=== PATIENT | female | born 1950 | race Caucasian/White ===

== ENCOUNTER 2020-04-06 10:31 | Outpatient (CLI) | payer MEDICARE, OTHER, SELFPAY ==
[2020-04-06 11:06] LABS: Add Urine Microscopic? YES; Appearance Urine Cloudy (Clear); Bacteria Urine Trace /hpf; Bilirubin Urine Negative (Negative); Blood Urine Negative (Negative); Color Urine Amber (Yellow); Glucose Urine UA Negative (Negative); Ketones Urine Negative (Negative); Leukocyte Esterase Ur 3+ LEU/UL (NEGATIVE); Mucus Urine Few /lpf; Nitrate Urine Negative (Negative); Protein Urine Negative (Negative); Specific Grav Ur 1.019 (1.001-1.035); Squamous Epithelial Cell Urine Occasional /hpf (Few); Urobilinogen Urine Negative mg/dL (<2.0); WBC Urine >75 /hpf (0-3)
[2020-04-06 11:11] LABS: Alanine Aminotransferase 94 U/L (4-35); Albumin Level 4.3 g/dL (3.5-5.1); Alkaline Phosphatase 68 U/L (38-126); Anion Gap 9 mmol/L (8-16); Aspartate Amino Transferase 81 U/L (14-36); Bilirubin,Total 0.9 mg/dL (0.2-1.3); Blood Urea Nitrogen 13 mg/dL (7-17); Calcium 9.6 mg/dL (8.4-10.2); Carbon Dioxide 26 mmol/L (22-30); Chloride 103 mmol/L (98-107); Cholesterol 192 mg/dL (0-200); Estimated Glomerular Filt Rate > 60; Glucose 128 mg/dL (65-105); HDL Direct 43 mg/dL; Potassium 4.2 mmol/L (3.4-5.0); Sodium 138 mmol/L (137-145); Triglycerides 159 mg/dL (<150)
[2020-04-06 11:22] LABS: LDL Cholesterol Direct 114 mg/dL
[2020-04-06 13:17] LABS: Hemoglobin A1C 6.2 % (<5.7)
== END 2020-04-06 10:32 | disposition home or self-care (01) ==
PROVIDERS: PCP Family Medicine; Visit Provider Physician Assistant
DX: E11.29 Type 2 diabetes mellitus with other diabetic kidney complication (principal); R80.9 Proteinuria, unspecified; I10 Essential (primary) hypertension; E78.2 Mixed hyperlipidemia
CPT/HCPCS: 36415; 80053; 80061; 81001; 83036

== ENCOUNTER 2020-06-11 11:25 | Outpatient (CLI) | payer MEDICARE, OTHER, SELFPAY ==
[2020-06-11 11:48] LABS: Add Urine Microscopic? YES; Appearance Urine Clear (Clear); Bilirubin Urine Negative (Negative); Blood Urine 1+ (Negative); Color Urine Yellow (Yellow); Glucose Urine UA Negative (Negative); Ketones Urine Negative (Negative); Leukocyte Esterase Ur 3+ LEU/UL (NEGATIVE); Nitrate Urine Negative (Negative); Protein Urine Negative (Negative); RBC Urine 0-2 /hpf (0-2); Urobilinogen Urine Negative mg/dL (<2.0); WBC Urine 51-75 /hpf (0-3)
[2020-06-11 12:13] LABS: Specific Grav Ur 1.004 (1.001-1.035)
== END 2020-06-11 11:26 | disposition home or self-care (01) ==
LOC: ANHLAB 11:27
PROVIDERS: PCP Family Medicine; Visit Provider Nurse Practitioner Family
DX: Z00.00 Encounter for general adult medical examination without abnormal findings (principal); N39.0 Urinary tract infection, site not specified; R30.0 Dysuria
CPT/HCPCS: 81001; 87086; 87088

== ENCOUNTER 2020-08-18 10:46 | Outpatient (CLI) | payer MEDICARE, OTHER, SELFPAY ==
[2020-08-18 11:25] LABS: Add Urine Microscopic? YES; Appearance Urine Clear (Clear); Bilirubin Urine Negative (Negative); Blood Urine Negative (Negative); Color Urine Amber (Yellow); Glucose Urine UA Negative (Negative); Ketones Urine Negative (Negative); Leukocyte Esterase Ur 1+ LEU/UL (NEGATIVE); Mucus Urine Rare /lpf; Nitrate Urine Positive (Negative); Protein Urine Negative (Negative); RBC Urine 0-2 /hpf (0-2); Squamous Epithelial Cell Urine Rare /hpf (Few)
== END 2020-08-18 10:47 | disposition home or self-care (01) ==
PROVIDERS: PCP Family Medicine; Visit Provider Nurse Practitioner Family
DX: N39.0 Urinary tract infection, site not specified (principal)
CPT/HCPCS: 81001; 87086; 87088

== ENCOUNTER 2020-09-02 10:18 | Outpatient (CLI) | payer MEDICARE, OTHER, SELFPAY ==
[2020-09-02 10:38] LABS: Basophils Absolute Auto 0.1 K/mm3 (0.0-0.1); Basophils Percent Auto 0.9 % (0.2-1.2); Eosinophils Absolute Auto 0.3 K/mm3 (0-0.3); Eosinophils Percent Auto 4.6 % (0-4.4); Hemoglobin 15.4 g/dL (12.0-15.0); Immature Granulocyte Absolute 0.01 K/mm3 (0.00-0.031); Immature Granulocyte Percent A 0.2 % (0-0.5); Lymphocytes Absolute Auto 1.76 K/mm3 (0.9-3.2); Lymphocytes Percent Auto 31.2 % (18.3-44.2); Mean Corpuscular HGB Conc 33.5 g/dl (32-36); Mean Corpuscular Volume 92.7 fl (80-100); Monocytes Absolute Auto 0.5 K/mm3 (0.1-0.6); Neutrophils Absolute Auto 3.1 K/mm3 (1.3-6.7); Neutrophils Percent Auto 54.1 % (45.5-73.1); Platelet Count Result 167 k/mm3 (150-375); Red Blood Count 4.96 M/mm3 (4.2-5.4); Red Cell Distribution Width 12.4 % (11.5-14.5); White Blood Count 5.7 K/mm3 (4.5-10.0)
[2020-09-02 10:50] LABS: Alanine Aminotransferase 35 U/L (4-35); Albumin Level 4.1 g/dL (3.5-5.1); Alkaline Phosphatase 41 U/L (38-126); Anion Gap 3 mmol/L (8-16); Aspartate Amino Transferase 41 U/L (14-36); Bilirubin,Total 1.1 mg/dL (0.2-1.3); Blood Urea Nitrogen 17 mg/dL (7-17); Calcium 9.5 mg/dL (8.4-10.2); Carbon Dioxide 33 mmol/L (22-30); Chloride 104 mmol/L (98-107); Cholesterol 122 mg/dL (0-200); Estimated Glomerular Filt Rate > 60; Glucose 99 mg/dL (65-105); HDL Direct 56 mg/dL; Potassium 4.2 mmol/L (3.4-5.0); Sodium 140 mmol/L (137-145); Triglycerides 111 mg/dL (<150)
[2020-09-02 11:01] LABS: LDL Cholesterol Direct 48 mg/dL
[2020-09-02 11:12] LABS: Creatinine Urine 302.2 mg/dL
[2020-09-02 11:17] LABS: Microalbumin Urine Random 33.2 mg/L (0-16.7)
== END 2020-09-02 10:19 | disposition home or self-care (01) ==
PROVIDERS: PCP Family Medicine; Visit Provider Physician Assistant
DX: K76.0 Fatty (change of) liver, not elsewhere classified (principal); E78.2 Mixed hyperlipidemia; E11.29 Type 2 diabetes mellitus with other diabetic kidney complication; R80.9 Proteinuria, unspecified; I10 Essential (primary) hypertension; Z00.00 Encounter for general adult medical examination without abnormal findings
CPT/HCPCS: 36415; 80053; 80061; 82043; 83036; 84443; 85025; 87086

== ENCOUNTER 2020-10-07 07:45 | Outpatient (CLI) | payer MEDICARE, OTHER, SELFPAY ==
--- NOTE | ~2020-10-07 | MM_ITS ---
EXAMINATION: MM screening [facility] BI w deidra HISTORY: Screening mammogram TECHNIQUE: Craniocaudal and mediolateral oblique 3-D tomosynthesis images were obtained and synthetic 2-D images were generated. CAD analysis was submitted and interpreted. COMPARISON: 09/16/2015, 07/24/2012 BREAST PARENCHYMAL COMPOSITION: The breasts are almost entirely fatty. FINDINGS: There is no evidence of suspicious mass, calcification, or architectural distortion to sugg est malignancy in either breast. There has been no suspicious interval change. IMPRESSION: 1. No mammographic evidence of malignancy. 2. Recommend routine screening mammography in one year. BI-RADS Category 1: Negative Reviewed, dictated and finalized at location A. AL PLANTING AND CULTIVATION MANAGER
--- NOTE | ~2020-10-07 | DEXA_ITS ---
Bone Density Report Name: Amairani Diamond Age: 70 Sex: Female Ethnicity: White Date of : 1950 Indication: postmenopausal; height loss; prior fracture; hysterectomy; Referring Provider: Dennis Stroud Study: Bone densitometry was performed. Exam Date: October 07, 2020 Accession number: [id number] Bone Density: Region BMD T-score Z-score Classification AP Spine (L1, L2) 0.928 -0.5 1.6 Normal Femoral Neck (Left) 0.722 -1.1 0.7 Osteopenia Total Hip (Left) 0.885 -0.5 1.1 Normal Total Hip Bilateral Avg 0.887 -0.5 1.1 Normal Femoral Neck (Right) 0.687 -1.5 0.4 Osteopenia Total Hip (Right) 0.888 -0.4 1.1 Normal World Health Organization criteria for BMD impression classify patients as: Normal (T-score at or above -1.0), Osteopenia (T-score between -1.0 and -2.5), or Osteoporosis (T-score at or below -2.5). 10-year Fracture Risk(1): Major Osteoporotic Fracture 16% Hip Fracture 2.2% Reported Risk Factors: [place] (), Neck BMD=0.687, BMI=26.9, previous fracture (1) FRAX(R) Version 3.08. Fracture probability calculated for an untreated patient. Fracture probability may be lower if the patient has received treatment. Previous Exams: Region Exam Age BMD T-score BMD Change BMD Change Date g/cm2 vs Baseline vs Previous AP Spine(L1, L2) 10/07/2020 70 0.928 -0.5 -0.042(-4.4%)# -0.016(-1.7%) 10/13/2016 66 0.944 -0.3 -0.027(-2.7%)# -0.027(-2.7%)# 05/21/2010 59 0.970 -0.1 Total Hip(Left) 10/07/2020 70 0.885 -0.5 -0.094(-9.6%)# -0.050(-5.3%)* 10/13/2016 66 0.935 -0.1 -0.045(-4.6%)# -0.045(-4.6%)# 05/21/2010 59 0.980 0.3 Total Hip(Right) 10/07/2020 70 0.888 -0.4 -0.123(-12.2%) -0.064(-6.7%)* 10/13/2016 66 0.952 0.1 -0.060(-5.9%)# -0.060(-5.9%)# 05/21/2010 59 1.011 0.6 *Denotes significance at 95% confidence level, LSC for AP Spine = 0.022 g/cm2, LSC for Total Hip = 0.027 g/cm2 Clinical Information Provided by Patient: Has had a low trauma fracture Has the following medical conditions: Hysterectomy Patient maximum height was 62.5 Menopause Age: 49 No regular weight bearing exercise Drinks caffeinated beverages Onset of menses at age 9 Number of children 3 Impression: The patient has low bone mass, based on the Right Femoral Neck T-score. The patient has an estimated ten-year risk of hip fracture of 2.2% and an estimated ten-year risk of major fracture of 16%, based on the WHO FRAX al
== END 2020-10-07 07:46 | disposition home or self-care (01) ==
LOC: ANHIMG 07:47
PROVIDERS: PCP Family Medicine; Visit Provider Family Medicine
DX: Z12.31 Encounter for screening mammogram for malignant neoplasm of breast (principal); Z78.0 Asymptomatic menopausal state
CPT/HCPCS: 77063; 77067; 77080

== ENCOUNTER 2021-06-18 09:12 | Outpatient (CLI) | payer MEDICARE, OTHER, SELFPAY ==
[2021-06-18 09:49] LABS: Hemoglobin A1C 5.3 % (<5.7)
[2021-06-18 09:52] LABS: Basophils Absolute Auto 0.1 K/mm3 (0.0-0.1); Eosinophils Absolute Auto 0.3 K/mm3 (0-0.3); Eosinophils Percent Auto 4.9 % (0-4.4); Hematocrit 46.9 % (37.0-47.0); Hemoglobin 15.5 g/dL (12.0-15.0); Immature Granulocyte Absolute 0.01 K/mm3 (0.00-0.031); Immature Granulocyte Percent A 0.2 % (0-0.5); Lymphocytes Absolute Auto 2.55 K/mm3 (0.9-3.2); Lymphocytes Percent Auto 41.6 % (18.3-44.2); Mean Corpuscular Hemoglobin 31.3 pg (26-34); Mean Corpuscular Volume 94.6 fl (80-100); Mean Platelet Volume 9.5 fl (7.4-10.4); Monocytes Absolute Auto 0.6 K/mm3 (0.1-0.6); Neutrophils Absolute Auto 2.7 K/mm3 (1.3-6.7); Neutrophils Percent Auto 43.3 % (45.5-73.1); Platelet Count Result 177 k/mm3 (150-375); Red Blood Count 4.96 M/mm3 (4.2-5.4); Red Cell Distribution Width 12.8 % (11.5-14.5); White Blood Count 6.1 K/mm3 (4.5-10.0)
== END 2021-06-18 09:13 | disposition home or self-care (01) ==
LOC: ANHLAB 09:16
PROVIDERS: PCP Family Medicine; Visit Provider Family Medicine
DX: E11.29 Type 2 diabetes mellitus with other diabetic kidney complication (principal); I10 Essential (primary) hypertension; R80.9 Proteinuria, unspecified; E11.9 Type 2 diabetes mellitus without complications
CPT/HCPCS: 36415; 83036; 85025

== ENCOUNTER 2021-09-23 09:42 | Outpatient (CLI) | payer MEDICARE, OTHER, SELFPAY ==
[2021-09-23 10:28] LABS: Basophils Percent Auto 0.5 % (0.2-1.2); Eosinophils Absolute Auto 0.3 K/mm3 (0-0.3); Eosinophils Percent Auto 4.4 % (0-4.4); Hematocrit 44.5 % (37.0-47.0); Hemoglobin 14.8 g/dL (12.0-15.0); Immature Granulocyte Absolute 0.02 K/mm3 (0.00-0.031); Immature Granulocyte Percent A 0.4 % (0-0.5); Lymphocytes Absolute Auto 1.14 K/mm3 (0.9-3.2); Lymphocytes Percent Auto 20.2 % (18.3-44.2); Mean Corpuscular HGB Conc 33.3 g/dl (32-36); Mean Corpuscular Hemoglobin 30.8 pg (26-34); Mean Corpuscular Volume 92.5 fl (80-100); Mean Platelet Volume 9.3 fl (7.4-10.4); Monocytes Absolute Auto 0.4 K/mm3 (0.1-0.6); Monocytes Percent Auto 7.8 % (2.6-8.5); Neutrophils Absolute Auto 3.8 K/mm3 (1.3-6.7); Neutrophils Percent Auto 66.7 % (45.5-73.1); Platelet Count Result 147 k/mm3 (150-375); Red Blood Count 4.81 M/mm3 (4.2-5.4); Red Cell Distribution Width 12.3 % (11.5-14.5); White Blood Count 5.6 K/mm3 (4.5-10.0)
[2021-09-23 10:34] LABS: Add Urine Microscopic? YES; Appearance Urine Clear (Clear); Bilirubin Urine Negative (Negative); Blood Urine Negative (Negative); Color Urine Yellow (Yellow); Glucose Urine UA Negative (Negative); Ketones Urine Negative (Negative); Leukocyte Esterase Ur Trace LEU/UL (NEGATIVE); Mucus Urine Rare /lpf; Nitrate Urine Negative (Negative); Protein Urine Negative (Negative); RBC Urine 0-2 /hpf (0-2); Specific Grav Ur 1.019 (1.001-1.035); Squamous Epithelial Cell Urine Rare /hpf (Few); Urobilinogen Urine Negative mg/dL (<2.0); WBC Urine 0-3 /hpf (0-3)
[2021-09-23 10:56] LABS: Hemoglobin A1C 5.3 % (<5.7)
[2021-09-23 10:59] LABS: Alanine Aminotransferase 36 U/L (4-35); Albumin Level 4.2 g/dL (3.5-5.1); Alkaline Phosphatase 75 U/L (38-126); Anion Gap 5 mmol/L (8-16); Aspartate Amino Transferase 39 U/L (14-36); Bilirubin,Total 0.7 mg/dL (0.2-1.3); Blood Urea Nitrogen 12 mg/dL (7-17); Calcium 9.4 mg/dL (8.4-10.2); Carbon Dioxide 28 mmol/L (22-30); Chloride 105 mmol/L (98-107); Cholesterol 142 mg/dL (0-200); Estimated Glomerular Filt Rate > 60; Glucose 122 mg/dL (65-110); HDL Direct 47 mg/dL; Potassium 4.2 mmol/L (3.4-5.0); Sodium 138 mmol/L (137-145); Triglycerides 186 mg/dL (<150)
[2021-09-23 11:10] LABS: LDL Cholesterol Direct 59 mg/dL
== END 2021-09-23 09:43 | disposition home or self-care (01) ==
LOC: ANHLAB 09:47
PROVIDERS: PCP Family Medicine; Visit Provider Nurse Practitioner Family
DX: E11.29 Type 2 diabetes mellitus with other diabetic kidney complication (principal); N39.0 Urinary tract infection, site not specified; E78.2 Mixed hyperlipidemia; I10 Essential (primary) hypertension; K76.0 Fatty (change of) liver, not elsewhere classified; R80.9 Proteinuria, unspecified
CPT/HCPCS: 36415; 80053; 80061; 81001; 83036; 84443; 85025

== ENCOUNTER 2022-09-02 09:50 | Outpatient (CLI) | payer MEDICARE, OTHER, SELFPAY ==
[2022-09-02 10:51] LABS: Alanine Aminotransferase 32 U/L (6-35); Albumin Level 3.8 g/dL (3.5-5.1); Alkaline Phosphatase 54 U/L (38-126); Anion Gap 6 mmol/L (8-16); Aspartate Amino Transferase 35 U/L (14-36); Blood Urea Nitrogen 16 mg/dL (7-17); Calcium 8.8 mg/dL (8.4-10.2); Carbon Dioxide 26 mmol/L (22-30); Chloride 108 mmol/L (98-107); Estimated Glomerular Filt Rate > 60; Glucose 89 mg/dL (65-110); Potassium 4.3 mmol/L (3.4-5.0); Sodium 140 mmol/L (137-145)
[2022-09-02 12:53] LABS: Hemoglobin A1C 5.3 % (<5.7)
== END 2022-09-02 09:51 | disposition home or self-care (01) ==
LOC: ANHLAB 09:52
PROVIDERS: PCP Family Medicine; Visit Provider Family Medicine
DX: R80.9 Proteinuria, unspecified (principal); E11.29 Type 2 diabetes mellitus with other diabetic kidney complication
CPT/HCPCS: 36415; 80053; 83036

== ENCOUNTER 2022-09-16 10:55 | Outpatient (CLI) | payer MEDICARE, OTHER, SELFPAY ==
--- NOTE | ~2022-09-16 | XR_ITS ---
Right Shoulder Technique: AP and scapular Y views were obtained. Clinical History: Pain Findings: No fracture or dislocation is seen. Osseous alignment is anatomic. The glenohumeral and acr omioclavicular joint spaces are preserved. Soft tissues are unremarkable. Impression: Unremarkable right shoulder radiographs. Reviewed, dictated and finalized at [facility]. E OILER Impression: Unremarkable right shoulder radiographs.
== END 2022-09-16 10:56 | disposition home or self-care (01) ==
PROVIDERS: PCP Family Medicine; Visit Provider Family Medicine
DX: M25.511 Pain in right shoulder (principal)
CPT/HCPCS: 73030

== ENCOUNTER 2023-03-14 10:25 | Outpatient (CLI) | payer MEDICARE, OTHER, SELFPAY ==
[2023-03-14 11:06] LABS: Hematocrit 45.7 % (37.0-47.0); Hemoglobin 15.5 g/dL (12.0-15.0); Mean Corpuscular HGB Conc 33.9 g/dl (32-36); Mean Corpuscular Hemoglobin 31.3 pg (26-34); Mean Corpuscular Volume 92.1 fl (80-100); Mean Platelet Volume 9.7 fl (7.4-10.4); Platelet Count Result 190 k/mm3 (150-375); Red Blood Count 4.96 M/mm3 (4.2-5.4); Red Cell Distribution Width 12.3 % (11.5-14.5); White Blood Count 5.9 K/mm3 (4.5-10.0)
[2023-03-14 11:15] LABS: Appearance Urine Cloudy (Clear); Bacteria Urine None Seen /hpf; Bilirubin Urine Negative (Negative); Blood Urine Negative (Negative); Color Urine Dark Yellow (Yellow); Glucose Urine UA Negative (Negative); Ketones Urine Negative (Negative); Leukocyte Esterase Ur 3+ LEU/UL (NEGATIVE); Nitrate Urine Negative (Negative); Non Pathogenic Casts 0-2; Protein Urine Negative (Negative); RBC Urine 0-2 /hpf (0-2); Specific Grav Ur 1.013 (1.001-1.035); Squamous Epithelial Cell Urine None seen /hpf (Few); WBC Urine 21-50 /hpf (0-3); pH Urine 6.5 (5.0-9.0)
[2023-03-14 11:16] LABS: Add Urine Microscopic? YES
[2023-03-14 11:32] LABS: Alanine Aminotransferase 40 U/L (6-35); Albumin Level 4.2 g/dL (3.5-5.1); Alkaline Phosphatase 57 U/L (38-126); Anion Gap 5 mmol/L (8-16); Aspartate Amino Transferase 40 U/L (14-36); Bilirubin,Total 1.1 mg/dL (0.2-1.3); Blood Urea Nitrogen 12 mg/dL (7-17); Carbon Dioxide 33 mmol/L (22-30); Chloride 101 mmol/L (98-107); Cholesterol 137 mg/dL (0-200); Estimated Glomerular Filt Rate > 60; Glucose 101 mg/dL (65-110); HDL Direct 46 mg/dL; Hemoglobin A1C 5.7 % (<5.7); Sodium 139 mmol/L (137-145); Triglycerides 134 mg/dL (<150)
[2023-03-14 11:53] LABS: LDL Cholesterol Direct 66 mg/dL
[2023-03-14 11:55] LABS: Creatinine Urine 122.8 mg/dL
[2023-03-14 11:56] LABS: MALB Creatinine Ratio 12.8 mg/g (0-30); Microalbumin Urine Random 15.7 mg/L (0-16.7)
== END 2023-03-14 10:26 | disposition home or self-care (01) ==
PROVIDERS: PCP Family Medicine; Visit Provider Family Medicine
DX: E11.29 Type 2 diabetes mellitus with other diabetic kidney complication (principal); E78.2 Mixed hyperlipidemia; I10 Essential (primary) hypertension; K76.0 Fatty (change of) liver, not elsewhere classified; R80.9 Proteinuria, unspecified
CPT/HCPCS: 36415; 80053; 80061; 81001; 82043; 83036; 84443; 85027

== ENCOUNTER 2023-09-19 11:05 | Outpatient (CLI) | payer OTHER, SELFPAY ==
[2023-09-19 12:32] LABS: Free T4 Free Thyroxine 0.94 ng/mL (0.78-2.19)
== END 2023-09-19 11:06 | disposition home or self-care (01) ==
LOC: ANHLAB 11:11
PROVIDERS: PCP Family Medicine; Visit Provider Family Medicine
DX: R79.89 Other specified abnormal findings of blood chemistry (principal); I10 Essential (primary) hypertension
CPT/HCPCS: 36415; 84439; 84443

== ENCOUNTER 2023-09-21 13:27 | Emergency (ER) | payer OTHER, SELFPAY ==
[2023-09-21 13:27] VITALS: BP 159/91; PULSE 65; RESP 20; TEMP 36.8; O2SAT 96
--- NOTE | 2023-09-21 13:46 | ED.EYEPROB ---
HPI - Eye Problem General Chief complaint: Eye Problems Stated complaint: right eye irritation Time Seen by Provider: 09/21/23 13:33 Source: patient Mode of arrival: ambulatory Limitations: no limitations History of Present Illness HPI Narrative: patient presents with irritation and foreign body sensation of the right eye, patient has not worn contacts in years does wear glasses with no visual changes there is some irritation no history of glaucoma there is some redness with no drainage currently. chief complaint: eye pain and eye redness Onset (ago): hour(s) Onset description: gradual Duration: constant Location: right eye Eye Symptoms: redness and foreign body sensation Related Data Home Medications Medication Instructions Recorded Confirmed epinephrine 0.3 mg/0.3 mL 0.3 mg IM ONCE 09/09/19 09/21/23 injection, auto-injector (EpiPen 2-Luke) Allergies Allergy/AdvReac Type Severity Reaction Status Date / Time lisinopril Allergy Unknown HAIR LOSS Verified 03/15/23 08:57 Penicillins Allergy Unknown HIVES . SOB Verified 03/15/23 08:57 Molds and Smuts Allergy Mild RUNNY Uncoded 03/15/23 08:57 NOSE, ITCHY EYES Review of Systems Review of Systems: All systems reviewed & are unremarkable except as noted in HPI and below PMFSH Past Medical History Medical History Chronic insomnia Fatty liver Mixed hyperlipidemia Radiculopathy, cervical region Type 2 diabetes mellitus with microalbuminuria Social History Social History Smoking status: Never smoker Second hand tobacco smoke exposure: No Alcohol intake: never Substance use: never Substance use type: does not use Living arrangements: with family Occupation/Education: retired Gender identity (if verbalized by the patient): Female Sexual Orientation (if Verbalized by the Patient): Straight or Heterosexual Exam Const: General: healthy appearing, no acute distress and alert Nutritional Appearance: well nourished Orientation/consciousness: patient oriented x3 HENMT: Head: normal to inspection Eyes: Other: Conjunctival injection and irritation with foreign body sensation the right eye, with no visual disturbances no discharge. Resp: Effort & Inspection: normal respiratory effort Auscultation: clear to auscultation bilaterally Cardio: Rate: regular rate Rhythm: regular rhythm Skin: General skin exam: normal color Neuro: General: patient oriented x3 and moves all extremities Course Course Emergency Course: Tetracaine was used to numb the right eye and fluorescein stain and fluorescent lamp was used and cotton swab tip no foreign body was visualized but there was a corneal abrasion visualized above the right pupil Vital Signs Vital signs: Vital Signs Temperature 36.8 C 09/21/23 13:27 Pulse Rate 65 09/21/23 13:27 Respiratory Rate 20 09/21/23 13:27 Blood Pressure 159/91 H 09/21/23 13:27 Pulse Oximetry 96 09/21/23 13:27 Oxygen Delivery Room Air 09/21/23 13:27 Temperature 36.8 C 09/21/23 13:27 Pulse Rate 65 09/21/23 13:27 Respiratory Rate 20 09/21/23 13:27 Blood Pressure 159/91 H 09/21/23 13:27 Pulse Oximetry 96 09/21/23 13:27 Oxygen Delivery Room Air 09/21/23 13:27 Procedures FB Removal Eye Foreign Body #1: Foreign Body Removal Date: 09/21/23 Foreign Body Removal Time: 13:49 Topical anesthetic used: tetracaine Foreign body: other ( no foreign body visualized) Evidence of corneal penetration: No Technique: irrigation and cotton tip swab Procedure performed under: direct visualization with magnification Patient tolerated procedure: well Foreign Body Removal Narrative: corneal abrasion was visualized in the right eye the cornea right above the pupils Critical Care Time Critical Care Time Critic
[2023-09-21] MEDS: FLUORESCEIN SOD 1 MG/STRIP EACH EYE (13:51)
[2023-09-21] MEDS: TETRACAINE HCL 0.5% OPHTH SOLN 4 ML BTL 1 DROP EACH EYE (13:51)
[2023-09-21] MEDS: DACRIOSE EYE IRRIGATION 118 ML BOTTLE 10 ML RIGHT EYE (13:51)
== END 2023-09-21 14:04 | disposition home or self-care (01) ==
PROVIDERS: Emergency Provider Emergency Medicine; PCP Family Medicine
DX: S05.01XA Injury of conjunctiva and corneal abrasion without foreign body, right eye, initial encounter (principal); E78.2 Mixed hyperlipidemia; E11.9 Type 2 diabetes mellitus without complications; K76.0 Fatty (change of) liver, not elsewhere classified; X58.XXXA Exposure to other specified factors, initial encounter
CPT/HCPCS: 99283; A9270

== ENCOUNTER 2024-03-07 10:37 | Outpatient (CLI) | payer OTHER, SELFPAY ==
--- NOTE | ~2024-03-07 | XR_ITS ---
EXAM: XR hip BI 2V w AP pelvis DATE: 03/07/2024 11:19 HISTORY: Pain in right hip X6 MO. NO INJ . COMPARISON: None available. FINDINGS: Decreased mineralization. No fracture or dislocation. No lytic or blastic lesion. Partiall y visualized uncomplicated appearing posterior lumbar fusion hardware and interbody devices. Mild reid ateral superior hip joint space narrowing. Mild degenerative change at the pubic symphysis. No erosio n or periosteal change. Soft tissues within normal limits. IMPRESSION: Mild bilateral hip osteoarthritis. Reviewed, dictated and finalized at location K.
[2024-03-07 11:34] LABS: Appearance Urine Clear (Clear); Bacteria Urine None Seen /hpf; Bilirubin Urine Negative (Negative); Blood Urine Negative (Negative); Color Urine Dark Yellow (Yellow); Glucose Urine UA Negative (Negative); Ketones Urine Negative (Negative); Leukocyte Esterase Ur 2+ LEU/UL (Negative); Nitrate Urine Negative (Negative); Non Pathogenic Casts 0-2; Protein Urine Negative (Negative); RBC Urine 0-2 /hpf (0-2); Specific Grav Ur 1.018 (1.001-1.035); Squamous Epithelial Cell Urine Occasional /hpf (Few); Urobilinogen Urine 0.2 mg/dL (<2.0); WBC Urine 21-50 /hpf (0-3); pH Urine 5.5 (5.0-9.0)
[2024-03-07 11:45] LABS: Creatinine Urine 145.1 mg/dL
[2024-03-07 11:50] LABS: MALB Creatinine Ratio 8.9 mg/g (0-30); Microalbumin Urine Random 12.9 mg/L (0-16.7)
[2024-03-07 11:53] LABS: Hematocrit 43.6 % (37.0-47.0); Hemoglobin 14.7 g/dL (12.0-15.0); Mean Corpuscular HGB Conc 33.7 g/dl (32-36); Mean Corpuscular Hemoglobin 31.8 pg (26-34); Mean Corpuscular Volume 94.4 fl (80-100); Mean Platelet Volume 10.3 fl (7.4-10.4); Platelet Count Result 187 k/mm3 (150-375); Red Blood Count 4.62 M/mm3 (4.2-5.4); Red Cell Distribution Width 12.5 % (11.5-14.5); White Blood Count 5.4 K/mm3 (4.5-10.0)
[2024-03-07 11:56] LABS: Add Urine Microscopic? YES
[2024-03-07 12:11] LABS: Alanine Aminotransferase 30 U/L (6-35); Alkaline Phosphatase 63 U/L (38-126); Anion Gap 9 mmol/L (4-12); Aspartate Amino Transferase 36 U/L (14-36); Bilirubin,Total 1.1 mg/dL (0.2-1.3); Blood Urea Nitrogen 18 mg/dL (7-17); Calcium 8.9 mg/dL (8.4-10.2); Carbon Dioxide 28 mmol/L (22-30); Chloride 102 mmol/L (98-107); Cholesterol 128 mg/dL (0-200); Estimated Glomerular Filt Rate > 60; Glucose 98 mg/dL (65-110); HDL Direct 42 mg/dL; Potassium 3.6 mmol/L (3.4-5.0); Sodium 139 mmol/L (137-145); Triglycerides 185 mg/dL (<150)
[2024-03-07 12:22] LABS: LDL Cholesterol Direct 56 mg/dL
[2024-03-07 13:04] LABS: Hemoglobin A1C 5.9 % (<5.7)
== END 2024-03-07 10:38 | disposition home or self-care (01) ==
LOC: ANHLAB 10:40
PROVIDERS: PCP Family Medicine; Visit Provider Family Medicine
DX: M16.0 Bilateral primary osteoarthritis of hip (principal); E11.29 Type 2 diabetes mellitus with other diabetic kidney complication; E78.2 Mixed hyperlipidemia; I10 Essential (primary) hypertension; R80.9 Proteinuria, unspecified
CPT/HCPCS: 36415; 73521; 80053; 80061; 81001; 82043; 83036; 84443; 85027

== ENCOUNTER 2024-04-26 11:28 | Outpatient (CLI) | payer OTHER, SELFPAY ==
--- NOTE | ~2024-04-26 | XR_ITS ---
EXAMINATION: XR wrist RT min 3V DATE: 04/26/2024 11:43 INDICATION: Right wrist pain. TECHNIQUE: 4 views of right wrist were obtained. COMPARISON: None. FINDINGS: Alignment is normal. No fracture. There is mild osteoarthritis of radiocarpal joint and mod erate osteoarthritis of first carpometacarpal joint. IMPRESSION: 1. Polyarticular osteoarthritis. Reviewed, dictated and finalized at location A.
== END 2024-04-26 11:29 | disposition home or self-care (01) ==
PROVIDERS: PCP Family Medicine; Visit Provider Family Medicine
DX: M19.031 Primary osteoarthritis, right wrist (principal)
CPT/HCPCS: 73110

== ENCOUNTER 2024-05-14 10:23 | Outpatient (CLI) | payer OTHER, SELFPAY ==
[2024-05-14 11:04] LABS: Alanine Aminotransferase 43 U/L (6-35); Alkaline Phosphatase 69 U/L (38-126); Anion Gap 6 mmol/L (4-12); Aspartate Amino Transferase 49 U/L (14-36); Bilirubin,Total 0.7 mg/dL (0.2-1.3); Blood Urea Nitrogen 14 mg/dL (7-17); Calcium 8.8 mg/dL (8.4-10.2); Carbon Dioxide 29 mmol/L (22-30); Chloride 103 mmol/L (98-107); Estimated Glomerular Filt Rate > 60; Glucose 117 mg/dL (65-110); Potassium 3.7 mmol/L (3.4-5.0); Sodium 138 mmol/L (137-145)
[2024-05-14 11:16] LABS: Hemoglobin A1C 5.7 % (<5.7)
[2024-05-14 11:23] LABS: Free T4 Free Thyroxine 0.87 ng/mL (0.78-2.19)
== END 2024-05-14 10:24 | disposition home or self-care (01) ==
LOC: ANHLAB 10:28
PROVIDERS: PCP Family Medicine; Visit Provider Family Medicine
DX: R80.9 Proteinuria, unspecified (principal); E11.29 Type 2 diabetes mellitus with other diabetic kidney complication; I10 Essential (primary) hypertension; E03.9 Hypothyroidism, unspecified
CPT/HCPCS: 36415; 80053; 83036; 84439; 84443

== ENCOUNTER 2024-10-30 08:20 | Outpatient (CLI) | payer OTHER, SELFPAY ==
--- NOTE | ~2024-10-30 | MM_ITS ---
EXAMINATION: MM screening [facility] BI w deidra HISTORY: Screening TECHNIQUE: Craniocaudal and mediolateral oblique 3-D tomosynthesis images were obtained and synthetic 2-D images were generated. CAD analysis was submitted and interpreted. COMPARISON: Comparison to multiple prior studies sequentially, with oldest reviewed study dated 10/2015. BREAST PARENCHYMAL COMPOSITION: Not Dense: The breasts are almost entirely fatty. FINDINGS: There is no evidence of suspicious mass, calcification, or architectural distortion to sugg est malignancy in either breast. There has been no suspicious interval change. IMPRESSION: 1. No mammographic evidence of malignancy. 2. Recommend routine screening mammography in one year. BI-RADS Category 1: Negative Reviewed, dictated and finalized at location []
--- NOTE | ~2024-10-30 | DEXA_ITS ---
Bone Density Report Name: KRYSTAL CLEMENS Age: 74 Sex: Female Ethnicity: White Date of : 1950 Indication: postmenopausal; screening for osteoporosis; height loss; hysterectomy; Referring Provider: CHUY AN Study: Bone densitometry was performed. Exam Date: October 30, 2024 Accession number: [id number] Bone Density: Region BMD T-score Z-score Classification AP Spine(L1, L2, L3) 0.776 -2.2 0.2 Osteopenia Femoral Neck (Left) 0.804 -0.4 1.7 Normal Total Hip (Left) 0.919 -0.2 1.6 Normal Femoral Neck (Right) 0.725 -1.1 1.0 Osteopenia Total Hip (Right) 0.871 -0.6 1.2 Normal Total Hip Mean 0.895 -0.4 1.4 Normal World Health Organization criteria for BMD impression classify patients as: Normal (T-score at or above -1.0), Osteopenia (T-score between -1.0 and -2.5), or Osteoporosis (T-score at or below -2.5). 10-year Fracture Risk(1): Major Osteoporotic Fracture 9.9% Hip Fracture 1.6% Reported Risk Factors: [place] (), Neck BMD=0.725, BMI=28.9 (1) FRAX(R) Version 3.08. Fracture probability calculated for an untreated patient. Fracture probability may be lower if the patient has received treatment. Previous Exams: Region Exam Age BMD T-score BMD Change BMD Change Date g/cm2 vs Baseline vs Previous Total Hip(Left) 10/30/2024 74 0.919 -0.2 -0.016 (-1.7%) 0.034 (3.8%)# 10/07/2020 70 0.885 -0.5 -0.050 (-5.3%) -0.050 (-5.3%) 10/13/2016 66 0.935 -0.1 Total Hip(Right) 10/30/2024 74 0.871 -0.6 -0.081 (-8.5%) -0.017 (-1.9%) 10/07/2020 70 0.888 -0.4 -0.064 (-6.7%) -0.064 (-6.7%) 10/13/2016 66 0.952 0.1 *Denotes significance at 95% confidence level, LSC for Total Hip = 0.027 g/cm2 # Denotes dissimilar scan types or analysis methods Clinical Information Provided by Patient: Has used the following medications: Vitamin D, Calcium Has the following medical conditions: Hysterectomy Patient maximum height was 62.5 Menopause Age: 49 Drinks caffeinated beverages Onset of menses at age 9 Number of children 3 Impression: The patient has low bone mass, based on the Total Spine T-score. The patient has an estimated ten-year risk of hip fracture of 1.6% and an estimated ten-year risk of major fracture of 9.9%, based on the WHO FRAX algorithm. No significant bone loss was observed. Discussion: BONE DENSITY IS LOW AT ONE OR MORE SKELETAL SITES. This patient's lowest T-score is low at one or more skeletal sites. It meets the World Health Organization's (WHO) criteria for ?low bone mass? (T-score between -1.0 and -2.5). The patient's 10-year risk of fracture as calculated by FRAX is less than the threshold where pharmacological therapy is recommended by the National Osteoporosis Foundation (NOF). However, all treatment decisions require clinical judgment and consideration of individual patient factors, including patient preferences, comorbidities, previous drug use, risk factors not captured in the FRAX model (e.g., frailty, falls, vitamin D deficiency, increased bone turnover, interval significant decline in bone density) and possible under or overestimation of fracture risk by FRAX. The patient should follow a healthful lifestyle (good nutrition with adequate calcium and vitamin D, and appropriate weight-bearing exercise). Follow-Up: Consider repeating this study in 2 to 3 years to reassess this patient's status, or sooner if there is some new clinical indication. Reported by: JANIYA on 10/30/2024 8:58:00 AM. Reviewed, dictated and finalized at location ADahiana JUAREZ
--- OUTSIDE RECORDS SUMMARY | 2024-10-30 08:37 | XMS_ITS | Encounter Summary ---
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
--- OUTSIDE RECORDS SUMMARY | 2024-10-30 08:37 | XMS_ITS | Referral Summary ---
Author Organization [facility] Address [address] [place] [address] Care Team Providers Care Corral Boss Name Role Phone Dennis Stroud MD Primary Care Provider Allergies Active Allergy Reactions Criticality Noted Date Comments Venom-Honey Bee Anaphylaxis High 09/11/2019 Lisinopril Cough Low 09/03/2019 Penicillins Shortness of breath High Wasp Venom Anaphylaxis High 09/11/2019 Medications losartan (COZAAR) 100 mg tabletIndication s:hypertension Take 100 mg by mouth every morning 2 9 Active cetirizine (ZyrTEC) 5 mg tabletIndication s:Allergic Rhinitis Take 5 mg by mouth every morning Active omeprazole/sodiu m bicarbonate (ZEGERID ORAL)Indications :Treatment of Non-Bleeding Gastric Disorder Take 1 tablet by mouth as needed Active riboflavin, vitamin B2, (VITAMIN B-2 ORAL) Take 500 mg by mouth every morning Active MAGNESIUM ORAL Take 250 mg by mouth every morning Active glucosamine sulfate (GLUCOSAMINE ORAL) Take 1,500 mg by mouth every morning Active NIACIN ORAL Take 500 mg by mouth every morning Active cholecalciferol, vitamin D3, (VITAMIN D3 ORAL) Take 100 mg by mouth every morning Active CALCIUM ORAL Take 1,200 mg by mouth every morning Active turmeric root extract 500 mg capsule Take 1 tablet by mouth every morning Active EPINEPHrine (EPIPEN) 0.15 mg/0.3 mL injection syringeIndicatio ns:Anaphylaxis Inject 1 Syringe into the muscle as instructed as needed for anaphylaxis Active senna-docusate (PERICOLACE) 8.6-50 mgIndications:co nstipation Take 2 tablets by mouth 2 (two) times a day 60 tablet 1 0 Active naproxen (ALEVE) 220 mg tabletIndication s:Pain Take 2 tablets (440 mg total) by mouth as needed for pain Hold for 2 weeks and then can start 0 Active acetaminophen 500 mg capsule Take 2 capsules (1,000 mg total) by mouth every 6 (six) hours as needed for pain 0 Active cyclobenzaprine (FLEXERIL) 5 mg tabletIndication s:Muscle Spasm Take 1 tablet (5 mg total) by mouth every 8 (eight) hours as needed for muscle spasms 60 tablet 1 0 Active oxyCODONE (ROXICODONE) 5 mg immediate release tabletIndication s:Pain Take 1 tablet (5 mg total) by mouth every 6 (six) hours as needed for pain 80 tablet 0 Active gabapentin (NEURONTIN) 300 mg capsuleIndicatio ns:Neuropathic Pain Take 2 capsules (600 mg total) by mouth 4 (four) times a day 240 capsule 3 2 Active Active Problems Problem Noted Date Diagnosed Date Cervical radiculopathy at C8 03/12/2019 Lumbago 05/14/2010 Immunizations Immunization Administration Dates Next Due Influenza, Split 04/24/2013 Influenza, Trivalent, High D ose, Split, Preservative Free, Intramuscular 06/14/2019,06/03/2018,05/28/2017 Influenza, Unspecified 05/14/2019 Pneumococcal Conjugate PCV 13 06/04/2018 Pneumococcal Polysaccharide PPV23 06/14/2019 Social History Tobacco Use Types Packs/Day Years Used Date Smoking Tobacco: Never Smokeless Tobacco: Never Tobacco Cessation:Counseling Given: No Alcohol Use Standard Drinks/Week Comments Yes 1 (1 standard drink = 0.6 oz pur e alcohol) socially/ holidays Comments No Sex and Gender Information Value Date Recorded Sex Assigned at Not on file 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 Gender Identity Not on file Sexual Orientation Not on file Last Filed Vital Signs Vital Sign Reading Time Taken Comments Blood Pressure 153/96 02/24/2020 2:38 PM CDT Pulse 61 02/24/2020 2:38 PM CDT Temperature 36.6 C (97.9 F) 09/12/2019 11:35 AM ROOM CLEANER Respiratory Rate 18 09/12/2019 4:30 AM ROOM CLEANER Oxygen Saturation 94% 09/12/2019 11: 12 AM ROOM CLEANER Inhaled Oxygen Concentration - - Weight 72.4 kg (159 lb 11.2 oz) 02/24/2020 2:38 PM CDT Height 157.5 cm (5' 2 ) 02/24/2020 2:38 PM CDT Body Mass Index 29.21 02/24/2020 2:38 PM CDT Plan of Treatment Not on file Goals Goal Patient Goal Type Associated Problems Recent Progress Patient-Stated? Author CCM Chronic Pain Care Plan Chronic Care Management Jayla Daniels, RN Note: Problem: Chronic Pain Goals: 1. Minimize further functional decline 2. Maximize quality of life 3. Control pain Strategies: - Activity/exercise program recommendation - Conservative stepwise pain medicine strategy with multi-disciplinary approach - Recommend healthy lifestyle strategies and compensatory methods as needed Insurance MEDICARE [facility] MEDICARE [facility] [place] Advance Directives For more information, please contact: [phone] * Full Code (Latest Code Status on File) Date Activated Date Inactivated Comments 09/11/2019 4:47 PM 09/12/2019 4:51 PM Care Teams Corral Boss Relationship Specialty Start Date End Date Dennis Stroud MD [address] [facility] [address] [place] [address] PCP - General Family Medicine 02/06/19
--- OUTSIDE RECORDS SUMMARY | 2024-10-30 08:37 | XMS_ITS | Encounter Summary ---
Author Organization [facility] Healthcare Address [address] [place] [address] Care Team Providers Care Molding Sander Name Role Phone Dennis Stroud MD Primary Care Provider Encounter Details Date Type Department Care Team (Late st Contact Info) Description 03/29/2019 Telephone [facility] [address] [facility] [address] [place] [address] Sandoval Dominguez MD [address] [facility] [place], [place] [id number] Social History Tobacco Use Types Packs/Day Years Used Date Smoking Tobacco: Never Smokeless Tobacco: Never Comments Unknown Sex and Gender Information Value Date Recorded Sex Assigned at Not on file 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 Author CCM Chronic Pain Care Plan Chronic Care Management No Jayla Chase, RN Note: Problem: Chronic Pain Goals: 1. Minimize further functional decline 2. Maximize quality of life 3. Control pain Strategies: - Activity/exercise program recommendation - Conservative stepwise pain medicine strategy with multi-disciplinary approach - Recommend healthy lifestyle strategies and compensatory methods as needed documented as of this encounter Visit Diagnoses Not on filedocumented in this encounter Care Teams Molding Sander Relationship Specialty Start Date End Date Dennis Stroud MD [address] [facility] [address] [place] [address] PCP - General Family Medicine 02/06/19 documented as of this encounter
--- OUTSIDE RECORDS SUMMARY | 2024-10-30 08:37 | XMS_ITS | Clinical Summary ---
Author Organization [facility] Address [address] [place] [address] Care Team Providers Care Door Builder Name Role Phone Dennis Stroud MD Primary [...] PCV 13 06/04/2018 Pneumococcal Polysaccharide PPV23 06/14/2019 Surgical History Surgery Date Site/Laterality Comments ELBOW SURGERY Elbow Surgery - (Added by TW Conv) [facility] TONSILLECTOMY PRIMARY/SEC ONDARY <AGE 11 Tonsillectomy - (Added by TW Conv) Medical History Medical History Date Comments Personal history of other en docrine, nutritional and metabolic disease History of diabetes mellitus - (Added by TW Conv) Personal history of other di seases of the circulatory system History of hypertension - (A dded by TW Conv) Personal history of other sp ecified conditions History of heartburn - (Adde d by TW Conv) Ear problems Type 2 diabetes mellitus (HCC) Gastric reflux Hypertension Kidney infection Wears glasses HTN (hypertension) Hearing aid worn Heartburn Diabetes (HCC) Arthritis Shoulder pain Hand pain Neck pain Itching Dermatitis Osteoporosis Family History Medical History Relation Name Comments Hypertension Father Cancer Maternal Grandfather Cancer Maternal Grandmother Hypertension Mother Hypertension Other Hypertension - (Added by TW Conv) Cancer Sister Relation Name Status Comments Father Maternal Grandfather Maternal Grandmother Mother Other Sister Social History Tobacco Use Types Packs/Day Years Used Date Smoking Tobacco: Never Smokeless Tobacco: Never Tobacco Cessation:Counseling Given: No Alcohol Use Standard Drinks/Week Comments Yes 1 (1 standard drink = 0.6 oz pur e alcohol) socially/ holidays Comments No Sex and Gender Information Value Date Recorded Sex Assigned at Not on file Legal Sex Female 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 Gender Identity Not on file Sexual Orientation Not on file Obstetrics History Last Filed Vital Signs Vital Sign Reading Time Taken Comments Blood Pressure 153/96 02/24/2020 2:38 PM CDT Pulse 61 02/24/2020 2:38 PM CDT Temperature 36.6 C (97.9 F) 09/12/2019 11:35 AM BLOCK TESTER Respiratory Rate 18 09/12/2019 4:30 AM BLOCK TESTER Oxygen Saturation 94% 09/12/2019 11: 12 AM BLOCK TESTER Inhaled Oxygen Concentration - - Weight 72.4 [...] and compensatory methods as needed Insurance MEDICARE [employer] [place] [employer] [place] Advance Directives For more information, please contact: [phone] * Full Code (Latest Code Status on File) Date Activated Date Inactivated Comments 09/11/2019 4:47 PM 09/12/2019 4:51 PM Care Teams Door Builder Relationship Specialty Start Date End Date Dennis Stroud MD [address] [facility] [address] [place] [address] PCP - General Family Medicine 02/06/19
== END 2024-10-30 08:21 | disposition home or self-care (01) ==
LOC: ANHIMG 08:21
PROVIDERS: PCP Family Medicine; Visit Provider Family Medicine
DX: Z12.31 Encounter for screening mammogram for malignant neoplasm of breast (principal); M85.852 Other specified disorders of bone density and structure, left thigh; M85.851 Other specified disorders of bone density and structure, right thigh; Z78.0 Asymptomatic menopausal state
CPT/HCPCS: 77063; 77067; 77080

== ENCOUNTER 2024-12-06 10:27 | Outpatient (CLI) | payer OTHER, SELFPAY ==
--- OUTSIDE RECORDS SUMMARY | 2024-12-06 10:50 | XMS_ITS | Clinical Summary ---
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 Gender Identity Not on file Sexual Orientation Not on file Obstetrics History Last Filed Vital Signs Vital Sign Reading Time Taken Comments Blood Pressure 153/96 02/24/2020 2:38 PM CDT Pulse 61 02/24/2020 2:38 PM CDT Temperature 36.6 C (97.9 F) 09/12/2019 11:35 AM TIME LOCK EXPERT Respiratory Rate 18 09/12/2019 4:30 AM TIME LOCK EXPERT Oxygen Saturation 94% 09/12/2019 11: 12 AM TIME LOCK EXPERT Inhaled Oxygen Concentration - - Weight 72.4 [...] MEDICARE PHYSICIANS [employer] PHYSICIANS [facility] Advance Directives For more information, please contact: [phone] * Full Code (Latest Code Status on File) Date Activated Date Inactivated Comments 09/11/2019 4:47 PM 09/12/2019 4:51 PM Care Teams Alcohol Law Enforcement Agent Relationship Specialty Start Date End Date Dennis Stroud MD [address] [facility] 120 [place] [address] PCP - General Family Medicine 02/06/19
--- OUTSIDE RECORDS SUMMARY | 2024-12-06 10:50 | XMS_ITS | Encounter Summary ---
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
--- OUTSIDE RECORDS SUMMARY | 2024-12-06 10:50 | XMS_ITS | Encounter Summary ---
Author Organization [facility] Healthcare Address [address] [place] [address] Care Team Providers Care Waste Water Operator Name Role Phone Dennis Stroud MD Primary Care Provider Encounter Details Date Type Department Care Team (Late st Contact Info) Description 03/29/2019 Telephone [facility] Center at [facility] [address] [facility] [address] [place] [address] Sandoval Dominguez MD [address] [facility] [place], [place] [id number] Social History Tobacco Use Types Packs/Day Years Used Date Smoking Tobacco: Never Smokeless Tobacco: Never Comments Unknown Sex and Gender Information Value Date Recorded Sex Assigned at Not on file 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
--- OUTSIDE RECORDS SUMMARY | 2024-12-06 10:50 | XMS_ITS | Referral Summary ---
Author Organization [facility] Address [address] [place] [address] Care Team Providers Care Coiled Tubing Supervisor Name Role Phone Dennis Stroud MD Primary [...] on file Legal Sex Female 1:24 AM ITEM PROCESSOR Gender Identity Not on file Sexual Orientation Not on file Last Filed Vital Signs Vital Sign Reading Time Taken Comments Blood Pressure 153/96 02/24/2020 2:38 PM CDT Pulse 61 02/24/2020 2:38 PM CDT Temperature 36.6 C (97.9 F) 09/12/2019 11:35 AM ITEM PROCESSOR Respiratory Rate 18 09/12/2019 4:30 AM ITEM PROCESSOR Oxygen Saturation 94% 09/12/2019 11: 12 AM ITEM PROCESSOR Inhaled Oxygen Concentration - - Weight 72.4 [...] and compensatory methods as needed Insurance MEDICARE [facility] MEDICARE PHYSICIANS [facility] Advance Directives For more information, please contact: [phone] * Full Code (Latest Code Status on File) Date Activated Date Inactivated Comments 09/11/2019 4:47 PM 09/12/2019 4:51 PM Care Teams Coiled Tubing Supervisor Relationship Specialty Start Date End Date Dennis Stroud MD [address] [facility] 120 [place] [address] PCP - General Family Medicine 02/06/19
== END 2024-12-06 10:28 | disposition home or self-care (01) ==
PROVIDERS: PCP Family Medicine; Visit Provider Family Medicine
DX: E03.9 Hypothyroidism, unspecified (principal)
CPT/HCPCS: 36415; 84443

== ENCOUNTER 2025-04-21 10:39 | Outpatient (CLI) | payer OTHER, SELFPAY ==
--- OUTSIDE RECORDS SUMMARY | 2025-04-21 10:59 | XMS_ITS | Clinical Summary ---
Author Organization [facility] Address [address] [place] [address] Care Team Providers Care Planner Scheduler Name Role Phone Dennis Stroud MD Primary [...] Elbow Surgery - (Added by TW Conv) DC TONSILLECTOMY PRIMARY/SEC ONDARY <AGE 11 Tonsillectomy - [...] Conv) Ear problems Type 2 diabetes mellitus Gastric reflux Hypertension Kidney infection Wears glasses [...] on file Legal Sex Female 1:24 AM BIOLOGICAL INSPECTOR Gender Identity Not on file Sexual Orientation Not on file Obstetrics History Last Filed Vital Signs Vital Sign Reading Time Taken Comments Blood Pressure 153/96 02/24/2020 2:38 PM CDT Pulse 61 02/24/2020 2:38 PM CDT Temperature 36.6 C (97.9 F) 09/12/2019 11:35 AM BIOLOGICAL INSPECTOR Respiratory Rate 18 09/12/2019 4:30 AM BIOLOGICAL INSPECTOR Oxygen Saturation 94% 09/12/2019 11: 12 AM BIOLOGICAL INSPECTOR Inhaled Oxygen Concentration - - Weight 72.4 kg (159 lb 11.2 oz) 02/24/2020 2:38 PM CDT Height 157.5 cm (5' 2) 02/24/2020 2:38 PM CDT Body Mass Index [...] MEDICARE PHYSICIANS [employer] PHYSICIANS [employer] Advance Directives For more information, please contact: [phone] * Full Code (Latest Code Status on File) Date Activated Date Inactivated Comments 09/11/2019 4:47 PM 09/12/2019 4:51 PM Care Teams Planner Scheduler Relationship Specialty Start Date End Date Dennis Stroud MD [address] [facility] 120 [place] [address] PCP - General Family Medicine 02/06/19
--- OUTSIDE RECORDS SUMMARY | 2025-04-21 10:59 | XMS_ITS | Encounter Summary ---
Author Organization [facility] Healthcare Address [address] [place] [address] Care Team Providers Care Professor Of Physical Education Name Role Phone Dennis Stroud MD Primary Care Provider Encounter Details Date Type Department Care Team (Late st Contact Info) Description 03/29/2019 Telephone [facility] Center at [facility] [address] [facility] [address] [place] [address] Sandoval Dominguez MD [address] 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
--- OUTSIDE RECORDS SUMMARY | 2025-04-21 10:59 | XMS_ITS | Encounter Summary ---
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
[2025-04-21 11:50] LABS: Add Urine Microscopic? YES
[2025-04-21 11:51] LABS: Appearance Urine Clear (Clear); Glucose Urine UA Negative (Negative); Nitrate Urine Negative (Negative); Specific Grav Ur 1.010 (1.001-1.035)
[2025-04-21 11:52] LABS: Leukocyte Esterase Ur 2+ LEU/UL (Negative)
[2025-04-21 11:56] LABS: Non Pathogenic Casts 0-2
== END 2025-04-21 10:40 | disposition home or self-care (01) ==
LOC: ANHLAB 10:40
PROVIDERS: PCP Family Medicine; Visit Provider Physician Assistant Medical
DX: R30.0 Dysuria (principal)
CPT/HCPCS: 81001; 87077; 87086; 87186

== ENCOUNTER 2025-05-30 10:23 | Outpatient (CLI) | payer OTHER, SELFPAY ==
--- OUTSIDE RECORDS SUMMARY | 2025-05-28 09:22 | XMS_ITS | Continuity of Care Document ---
Author Organization [facility] Address [address] [place] [id number] Phone Care Team Providers Care Casting Finisher Name Role Phone Sanam GRAY Matheus Unavailable Unavailable Allergies, Adverse Reactions, Alerts Substance Reaction Status Criticality cyclobenzaprine Unknown Active No Informati on diphenhydramine seizures Active No Informati on WARNIN allergy(ies) could not be collected because the type is not supported. Please contact the source practice for further details. Medications Medication Instructions Dosage Effective Dates (start - stop) Status Comments Golytely 236 gram-22.74 gram-6.74 gram-5.86 gram oral solution take by oral route as directed for colonoscopy prep - Active may use any generic equivalent Ocuvite Adult 50 Plus 250 mg (90 mg-160 mg) capsule take once daily - Active acetaminophen 500 mg tablet take 2 tablet by oral route every 6 hours as needed 1000 MG - Active Gemtesa 75 mg tablet take 1 tablet by oral route every day 75 MG - Active gabapentin 400 mg capsule take 1 capsule by oral route 3 times every day 400 MG - Active pantoprazole 40 mg tablet,delayed release take 1 tablet by oral route every day 40 MG - Active tramadol 50 mg tablet take 1 tablet by oral route every 6 hours as needed 50 MG - Active trospium ER 60 mg capsule,extended release 24 hr take 1 capsule by oral route every day on an empty stomach 1 hour before meal(s) 60 MG - Active Tylenol Extra Strength 500 mg tablet take 2 tablet by oral route every 6 hours as needed 1000 MG - Active Vitamin B-12 5,000 mcg sublingual tablet take as directed - Active vitamin E 268 mg (400 unit) capsule take as directed - Active vitamin K2 100 mcg capsule take as directed - Active ascorbic acid (vitamin C) 500 mg capsule daily - Active ergocalciferol (vitamin D2) 50,000 unit capsule take 1 capsule by oral route every week 37315 UNITS - Active vitamin A 10,000 unit capsule take 1 capsule by oral route every day 59305 UNITS - Active Prozac 40 mg Cap Take once daily - Active ibuprofen 800 mg Tab Take 1 three times a day - Active fluticasone 50 mcg/actuation Nasal Lucas, Susp Take once daily - Active Singulair 10 mg Tab Take once daily - Acti ve trazodone 150 mg Tab Take 1 every night at bedtime - Active Advair Diskus 250 mcg-50 mcg/dose for Inhalation Take 1 twice daily - Active multivitamin Tab Take once daily - Active Calcium 600 + D(3) 600 mg (1,500 mg)-400 unit Tab Take 1 twice daily - Active B complex vitamins Tab Take once daily - Active Procedures Procedure Date Offic/outpt E&m [place] [address] 4 Colonoscopy Flex; W/remov Les- 19 Ugi Endo; W/balloon Dilat Esop 19 U[facility] Endo; W/bx 1/mx Colonoscopy Flex; Dx (sep Pro) 19 Offic/outpt E&m [place] [address] 8 ASC Facility Charge Colorectal Ca Scrn Not Hi Risk 08 Advance Directives Directive Yes / No Effective Date File Name No Information Encounters Encounter Description Practice Location Reason(s) For Visit Diagnoses Date Provider Providers Copied on Encounter [facility], [address] [place] [address], [id number] tel:[phone] [facility] No Information 5 Baddour DO Matheus. [address] [place] [address], [id number], . tel:[phone] [facility], [address] [place] [address], [id number] tel:[phone] [email or web address] Dysphagia, unspecified typeDiarrhea , unspecified type 5 Baddour DO Matheus. [address] [place] [address], [id number], [place]. tel:[phone] [facility], [address] [place] [address], [id number] tel:[phone] [facility] Hepatic steatosis 4 Smaha [facility] Delilah. [address] [place] [address], [id number], [place]. tel:[phone] Offic/outpt E[facility]m [facility] 45 [facility], [address] [place] [address], [id number] tel:[phone] [facility] full incontinence of feces (chief complaint) Diarrhea, unspecified typeDysphagi a, unspecified typeWeight loss, unintentiona l 4 [employer] [facility] Delilah. [address] [place] [address], [id number], [place]. tel:[phone] [facility], [address] [place] [address], [id number] tel:[phone] [facility] No Information 9 Fito Coppola. [address] [place] [address], [id number], [place]. tel:[phone] [facility], [address] [place] [address], [id number] tel:[phone] [facility] No Information 9 Dennis Almaraz. [address] [place] [address], [id number], [place]. tel:[phone] Offic/outpt E&m [facility] 45 [facility], [address] [place] [address], [id number] tel:[phone] [facility] abnormal GI imaging (chief complaint) Abnormal findings on diagnostic imaging of other parts of digestive tractEsophag eal dysphagiaGen eralized abdominal pain 8 Kingston Carrasquillo. [address] [place] [address], [id number], [place]. tel:[phone] [facility], [address] [place] [address], [id number] tel:[phone] [facility] No Information 0 8 [facility]. [address] [place] [address], [id number], [place]. tel:[phone] Referring Provider: Giorgi Arambula, [address] [place] [address], [id number] . tel:[phone] [facility], [address] [place] [address], [id number] tel:[phone] [facility] [employer] Screening for Colon Cancer 8 Ashtyn Rand. [address] [place] [address], [id number], [place]. tel:[phone] [facility], [address] [place] [address], [id number] tel:[phone] [facility] [employer] No Information 0 8 Ashtyn Rand. [address] [place] [address], [id number], [place]. tel:[phone] [facility] [employer] [employer], [address] [place] [address], [id number] tel:[phone] [facility] [employer] [facility] [employer] [employer] No Information 200 0 Ashtyn Rand. [address] [place] [address], [id number], [place]. tel:[phone] Family History Family Member Type Diagnosis Age At Onset Problem (finding) Family history of No fam hx of Colon Ca or Polyps Immunizations Vaccine Date Status Comments Pneumonia administered Source: Other P rovider Flu (split) (3 yrs or older) administered Source: Other Provider Payers Payer name Insurance type Covered libertarian ID Authoriza tion(s) No Information Social History Type Description Quantity Date Captured Comments Sex Female Smoking Status No Information Chief Complaint And Reason For Visit No Information Reason For Referral Reason For Referral No Information Plan Of Treatment Date Type Action Status Patient Education Using Your Medicines: C are Instructions completed Patient Education Upper GI Endos copy: Before Your Procedure completed Patient Education Colonoscopy: Before You r Procedure completed Patient Education Esophageal Dil ation: Before Your Procedure completed Patient Education Using Your Medicines: A fter Your Visit completed Patient Education Colonoscopy: Before You r Procedure completed Patient Education Upper GI Endoscopy: Bedario colmenares Your Proce~ completed Future Order: Lab Order RAJWINDER Rivas ([id number]), Ordered on: Ordered History Of Present Illness Encounter Date Complaint History Of Prese nt Illness full incontinence of feces This is a 73-year-old female with PMH of osteoporosis that presents to the office as a referral for full incontinence of feces. She is unaccompanied this visit.Patient reports starting around January or February, she developed looser stools. She reports that she has not had a normal bowel movement since January. Some days she will have looser stools described as a cow pie occurring 2-3 times a day, and other times having liquid diarrhea to which she takes 2 antidiarrheal pills with improvement of bowel habits. She also endorses symptoms of fecal leakage. Patient does endorse some symptoms of abdominal cramping prior to defecation at times. She also endorses lower abdominal pain that is described as a sharp sensation that is exacerbated by her leaning forward. Patient was also noted to have this pain when she was last seen in consultation in 2017. Patient endorses losing 12 to 13 pounds since this all started. She was diagnosed with a UTI in April and was placed on levofloxacin which seemed to help her diarrhea. After she stopped her levofloxacin, her diarrhea returned. She denies any hematochezia. Patient does endorse having a history of C. difficile. She also endorses a history of pancreatitis requiring a cholecystectomy, however this was years ago. She denies any fevers, chills, nausea, vomiting, loss of appetite, or pain with eating. She does endorse using 3000 mg ibuprofen daily.She also endorses symptoms of solid food dysphagia describing solids getting stuck at the level of her sternal notch requiring water to help them advance. She had an EGD last in 2018 that revealed presence of a Schatzki ring requiring dilation. She does endorse having worsening of GERD symptoms as of recently and has been placed on pantoprazole with control of symptoms.I have reviewed urogynecology progress note from encounter on 04/26/2024 as part of this visit.Previous testing:Labs 4Creatinine 0.99, albumin low at 3.1, protein low at 5.6Hemoglobin 12.1, MCV high at 106.1, platelets 282Thyroid ultrasound 11/01/2023 reveals stable appearance of multinodular goiter with dominant left thyroid nodule unchangedColonoscopy subcentimeter sessile serrated adenoma of the cecumSingle mouth diverticulum in the sigmoid colon abnormal GI imaging Ms. Jas corona s a 68 y/o female with PMHx significant for asthma who presents to [facility] for evaluation regarding symptoms of diarrhea and abnormal GI imaging. Patient was hospitalized 10 weeks ago with renal failure and sepsis secondary to UTI. During that hospitalization, she developed nonbloody diarrhea and underwent CT scan which showed thickening of the colon. The patient was treated with antibiotics and was discharged home.Currently, patient's bowel habits are back to baseline. She experiences bloating that improves with passage of flatus. The patient reports vague lower abdominal pain that worsens when leaning forward. She denies nausea, vomiting, but reports solid food dysphagia often. The patient has a history of acid reflux but this is controlled with twice daily Ranitidine.Of note, patient is s/p gastric bypass and lost approximately 200 lbs thereafter. She has also undergone hysterectomy, , cholecystectomy, and panniculectomy following gastric bypass.Blood work obtained on July 14, 2018 showed a hemoglobin of 11.2, platelet count 216, albumin 2.7, total bilirubin 0.5, AST 25, ALT 21, alkaline phosphatase 93. C. difficile toxin done on May 11, [address] of the abdomen and pelvis with IV contrast done on May 12, 2018 showed circumferential bowel wall thickening and edema of the rectum with proximal contiguous involvement of the entire sigmoid and descending colon consistent with colitis. There was interval development of new small amount of abdominal ascites. Repeat CT done on June 27, 2018 showed improved left colonic mural thickening with new segmental right colonic wall thickening. There was also evidence of resolution of ascites.Ms. Mark is a 68-year-old female who presents for evaluation regarding abnormal imaging suggestive of potential colitis and symptoms of solid food dysphagia. She will undergo upper endoscopy with possible dilation and colonoscopy. Both procedures will be scheduled with [facility] and additional time will be allowed secondary to multiple intra-abdominal surgeries and large ventral hernia. An extended bowel prep will be used given suboptimal prep during prior colonoscopy. Functional Status Date Functional Assessmen t No Information Instructions Date Instruction Additional Infor mation Try Benefiber or Citrucel Relate d to Diarrhea, unspecified type Trial of fiber suppl ement daily (gradually increase over 2-3 wks) Related to Diarrhea, unspecified type Assessments Type Assessment Date No Information Patient Care Teams Name Effective Dates (start - stop) Status Members No Information
--- OUTSIDE RECORDS SUMMARY | 2025-05-30 11:00 | XMS_ITS | Encounter Summary ---
Author Organization [facility] Healthcare Address [address] [place] [address] Care Team Providers Care Small Order Cutter Name Role Phone Dennis Stroud MD Primary Care Provider Encounter Details Date Type Department Care Team (Late st Contact Info) Description 03/20/2019 Telephone [facility] Neuro Interventional Radiology 1 [place] [address] Yuki Palafox, RT Social History Tobacco Use Types Packs/Day Years Used Date Smoking Tobacco: Never Smokeless Tobacco: Never Comments Unknown Sex and Gender Information Value Date Recorded Sex Assigned at Not on file Legal Sex Female 1:24 AM FLY WINDER Gender Identity Not on file Sexual Orientation Not on file documented as of this encounter Plan of Treatment Not on file documented as of this encounter Visit Diagnoses Not on filedocumented in this encounter Care Teams Small Order Cutter Relationship Specialty Start Date End Date Dennis Stroud MD [address] [facility] [address] [place] [address] PCP - General Family Medicine 02/06/19 documented as of this encounter
--- OUTSIDE RECORDS SUMMARY | 2025-05-30 11:00 | XMS_ITS | Encounter Summary ---
Author Organization [facility] Healthcare Address [address] [place] [address] Care Team Providers Care Overlock Hemmer Name Role Phone Dennis Stroud MD Primary Care Provider Encounter Details Date Type Department Care Team (Late st Contact Info) Description 03/29/2019 Telephone [facility] at [facility] [address] [facility] [address] [place] [address] Sandoval Dominguez MD [address] [facility] [place], [place] [id number] Social History Tobacco Use Types Packs/Day Years Used Date Smoking Tobacco: Never Smokeless Tobacco: Never Comments Unknown Sex and Gender Information Value Date Recorded Sex Assigned at Not on file Legal Sex Female 1:24 AM SOCIAL STAFF WORKER Gender Identity Not on file Sexual [...] on filedocumented in this encounter Care Teams Overlock Hemmer Relationship Specialty Start Date End Date Dennis Stroud MD [address] [facility] [address] [place] [address] PCP - General Family Medicine 02/06/19 documented as of this encounter
--- OUTSIDE RECORDS SUMMARY | 2025-05-30 11:00 | XMS_ITS | Clinical Summary ---
Author Organization [facility] Address [address] [place] [address] Care Team Providers Care Prefitter Doors Name Role Phone Dennis Stroud MD Primary [...] Elbow Surgery - (Added by TW Conv) [place] TONSILLECTOMY PRIMARY/SEC ONDARY <AGE 11 Tonsillectomy - [...] HTN (hypertension) Hearing aid worn Heartburn Diabetes Arthritis Shoulder pain Hand pain Neck pain [...] on file Legal Sex Female 1:24 AM [employer]CH[employer]ICAL DOOR REPAIRER Gender Identity Not on file Sexual Orientation Not on file Obstetrics History Last Filed Vital Signs Vital Sign Reading Time Taken Comments Blood Pressure 153/96 02/24/2020 2:38 PM CDT Pulse 61 02/24/2020 2:38 PM CDT Temperature 36.6 C (97.9 F) 09/12/2019 11:35 AM MECHANICAL DOOR REPAIRER Respiratory Rate 18 09/12/2019 4:30 AM MECHANICAL DOOR REPAIRER Oxygen Saturation 94% 09/12/2019 11: 12 AM MECHANICAL DOOR REPAIRER Inhaled Oxygen Concentration - - Weight 72.4 [...] Insurance [employer] [place] [employer] [place] Advance Directives For more information, please contact: [phone] * Full Code (Latest Code Status on File) Date Activated Date Inactivated Comments 09/11/2019 4:47 PM 09/12/2019 4:51 PM Care Teams Prefitter Doors Relationship Specialty Start Date End Date Dennis Stroud MD [address] [facility] [address] [place] [address] PCP - General Family Medicine 02/06/19
[2025-05-30 11:54] LABS: Free T4 Free Thyroxine 1.48 ng/dL (0.78-2.19)
[2025-05-30 12:07] LABS: Thyroid Stimulating Hormone < 0.015 uIU/mL (0.465-4.680)
== END 2025-05-30 10:24 | disposition home or self-care (01) ==
PROVIDERS: PCP Family Medicine; Visit Provider Family Medicine
DX: E03.9 Hypothyroidism, unspecified (principal)
CPT/HCPCS: 36415; 84439; 84443